=== PATIENT | female | born 1980 ===

== ENCOUNTER 2021-02-28 06:08 | Day surgery (SDC) | payer OTHER ==
[~2021-02-28 06:08] MED LIST: ALLEGRA-D1 TAB.SR . PO; B12 ACTIVE1000 MCG PO; FISH OIL 1,0001 EAC1 PO; MAGNESIUM200 MG PO; MULTIPLE VITAM1 EAC2 PO
[2021-02-28] MEDS ORDERED: PERCOCET 5-3251 EACH PO (10:40)
[2021-02-28] MEDS ORDERED: POLY119PG PO (10:40)
[2021-02-28] MEDS ORDERED: NEURONTIN600 M1 PO (10:40)
== END 2021-02-28 16:20 | disposition home or self-care (01) ==
LOC: CIR.AMB 06:08
PROVIDERS: ATTEND Surgery
DX: K43.0 Incisional hernia with obstruction, without gangrene (principal); Z20.822 Contact with and (suspected) exposure to COVID-19